=== PATIENT | female | born 1960 | race Caucasian/White ===

== ENCOUNTER 2018-01-04 13:25 | Inpatient (IN) | payer BC ==
[~2018-01-04] VITALS: Ht 170.2 cm; Wt 87.4 kg
[~2018-01-04 13:25] MED LIST: ALPR-475 PO; ENAL20TA PO; LISI1TAB3 PO; LISI1TAB7 PO; METO-93 PO; METO50TA4 PO
[2018-01-04] MEDS ORDERED: ESCI10TA PO (14:22)
[2018-01-04] MEDS ORDERED: METO25TA35 PO (14:22)
[2018-01-04] MEDS ORDERED: LISI2.5T PO (14:23)
[2018-01-04] MEDS ORDERED: DEXL60CA2 PO (14:23)
[2018-01-04] MEDS ORDERED: SODIUM CHLORIDE FLUSH 10ML SYR IVF ONE (15:00)
[2018-01-04] MEDS ORDERED: METOCLOPRAMIDE 5 MG/ML, 2ML IVPush ONE (15:00)
[2018-01-04] MEDS ORDERED: PANTOPRAZOLE 40 MG IV IVP ONE (15:00)
[2018-01-04] MEDS ORDERED: METOCLOPRAMIDE 10MG TABLET ONE (15:04)
[2018-01-04] MEDS ORDERED: PANTOPRAZOLE 40 MG IV ONE (15:05)
[2018-01-04 15:19] LABS: BASOPHILS # (AUTO) 0.03 x10^3/uL (0-0.1); BASOPHILS % (AUTO) 1 % (0-1); EOSINOPHILS # (AUTO) 0.13 x10^3/uL (0-0.4); EOSINOPHILS % (AUTO) 2 % (1-7); LYMPHOCYTES # (AUTO) 1.13 x10^3/uL (1-3.4); LYMPHOCYTES % (AUTO) 18 % (22-44); MD NO; MEAN CORPUSCULAR HEMOGLOBIN 19.8 pg (27.0-34.8); MEAN CORPUSCULAR HGB CONC 30.2 g/dL (32.4-35.8); MEAN CORPUSCULAR VOLUME 65.5 fL (80-100); MEAN PLATELET VOLUME 8.5 fL (7.4-10.4); MONOCYTES # (AUTO) 0.38 x10^3/uL (0.2-0.8); MONOCYTES % (AUTO) 6 % (2-9); NEUTROPHILS # (AUTO) 4.63 x10^3/uL (1.8-6.8); NEUTROPHILS % (AUTO) 74 % (42-75); PLATELET COUNT 370 x10^3/uL (130-400); RED BLOOD COUNT 4.31 x10^6/uL (3.82-5.3); RED CELL DISTRIBUTION WIDTH 18.1 % (9.6-15.2)
[2018-01-04 15:23] LABS: ALANINE AMINOTRANSFERASE 18 U/L (12-78); ALBUMIN 3.6 g/dL (3.4-5.0); ANION GAP 9 mmol/L (5-15); CALCIUM 9.4 mg/dL (8.5-10.1); CHLORIDE 114 mmol/L (98-107)
[2018-01-04 15:26] LABS: ALKALINE PHOSPHATASE 76 U/L (45-117); BILIRUBIN,TOTAL 0.6 mg/dL (0.2-1.0); CREATININE 0.78 mg/dL (0.55-1.02); TOTAL PROTEIN 6.7 g/dL (6.4-8.2)
[2018-01-04] MEDS ORDERED: PROMETHAZINE 25 MG/ML, 1ML ONE (15:56)
[2018-01-04] MEDS ORDERED: PROMETHAZINE 25 MG/ML, 1ML IM ONE (16:00)
[2018-01-04] MEDS ORDERED: SODIUM CHLORIDE 0.9% 1,000ML IVBOLUS ONE (16:00)
[2018-01-04] MEDS ORDERED: OMNIPAQUE 350 MG/ML, 100ML BOTTLE ONE (16:00)
[2018-01-04] MEDS ORDERED: hydrALAzine 20 MG/ML, 1ML ONE (16:11)
[2018-01-04] MEDS ORDERED: hydrALAzine 20 MG/ML, 1ML IV ONE (16:30)
[2018-01-04] MEDS ORDERED: POTASSIUM CHLORIDE 40 MEQ in SODIUM CHLORIDE 0.9% 500 ML IV ONE (16:30)
[2018-01-04] MEDS ORDERED: SODIUM CHLORIDE 0.9% 1,000 ML IV SCH (17:32)
[2018-01-04 17:51] VITALS: BP 190/89
[2018-01-04 17:58] LABS: INTERNATIONAL NORMALIZED RATIO 1.08 (0.93-1.1); PROTHROMBIN TIME 11.2 Seconds (9.6-11.5)
[2018-01-04] MEDS ORDERED: ONDANSETRON ODT 4 MG PO PRN (18:00)
[2018-01-04] MEDS ORDERED: PANTOPRAZOLE 80 MG in SODIUM CHLORIDE 0.9% 50 ML IV ONE (18:00)
[2018-01-04] MEDS ORDERED: hydrALAzine 20 MG/ML, 1ML IVPush PRN (18:00)
[2018-01-04] MEDS ORDERED: PROMETHAZINE 25 MG/ML, 1ML IM PRN (18:00)
[2018-01-04] MEDS: morphine SULFATE 10 MG/ML, 1ML IVPush PRN ×2 (20:47→21:54)
[2018-01-04] MEDS: SODIUM CHLORIDE 0.9% 1,000 ML IV SCH (21:15)
[2018-01-04] MEDS: PANTOPRAZOLE 80 MG in SODIUM CHLORIDE 0.9% 100 ML IV SCH (21:36)
[2018-01-04 21:59] VITALS: BP 149/94
[2018-01-05 01:06] VITALS: BP 152/75
[2018-01-05] MEDS: SODIUM CHLORIDE 0.9% 1,000 ML IV SCH (01:37)
[2018-01-05] MEDS: morphine SULFATE 10 MG/ML, 1ML IVPush PRN ×5 (01:37→22:09)
[2018-01-05 05:32] LABS: CHLORIDE 120 mmol/L (98-107)
[2018-01-05 05:56] LABS: ALANINE AMINOTRANSFERASE 13 U/L (12-78); ALBUMIN 2.7 g/dL (3.4-5.0); ALKALINE PHOSPHATASE 59 U/L (45-117); ANION GAP 7 mmol/L (5-15); BILIRUBIN,TOTAL 0.7 mg/dL (0.2-1.0); CALCIUM 8.2 mg/dL (8.5-10.1); CREATININE 0.57 mg/dL (0.55-1.02); TOTAL PROTEIN 5.1 g/dL (6.4-8.2)
[2018-01-05] MEDS ORDERED: POTASSIUM CHLORIDE 80 MEQ in SODIUM CHLORIDE 0.9% 1,000 ML IV ONE (08:00)
[2018-01-05] MEDS ORDERED: METOPROLOL TARTRATE 25 MG TABLET PO SCH (09:00)
[2018-01-05] MEDS ORDERED: LISINOPRIL 20 MG TABLET PO SCH (09:00)
[2018-01-05 09:11] VITALS: BP 165/77
[2018-01-05] MEDS: PANTOPRAZOLE 80 MG in SODIUM CHLORIDE 0.9% 100 ML IV SCH ×2 (09:31→22:09)
[2018-01-05] MEDS ORDERED: MIDAZOLAM 1 MG/ML, 5ML ONE (09:51)
[2018-01-05] MEDS ORDERED: FENTANYL PF 100 MCG/2ML ONE (09:51)
[2018-01-05] MEDS: SUCRALFATE 1 GM/10 ML UDC PO SCH ×3 (13:35→21:23)
[2018-01-05 13:37] LABS: ANION GAP 9 mmol/L (5-15); CHLORIDE 119 mmol/L (98-107); CREATININE 0.62 mg/dL (0.55-1.02)
[2018-01-05 13:52] VITALS: BP 132/79
[2018-01-05 18:52] VITALS: BP 134/80
[2018-01-05] MEDS: POTASSIUM CHLORIDE 20 MEQ in SODIUM CHLORIDE 0.45% 1,000 ML IV SCH (22:15)
[2018-01-06] MEDS: morphine SULFATE 10 MG/ML, 1ML IVPush PRN ×2 (01:38→05:16)
[2018-01-06 01:54] VITALS: BP 133/77
[2018-01-06 06:03] LABS: ALBUMIN 2.8 g/dL (3.4-5.0); ANION GAP 7 mmol/L (5-15); CALCIUM 7.9 mg/dL (8.5-10.1); CHLORIDE 117 mmol/L (98-107)
[2018-01-06 06:05] LABS: BASOPHILS # (AUTO) 0.04 x10^3/uL (0-0.1); BASOPHILS % (AUTO) 1 % (0-1); EOSINOPHILS # (AUTO) 0.19 x10^3/uL (0-0.4); EOSINOPHILS % (AUTO) 3 % (1-7); LYMPHOCYTES # (AUTO) 1.42 x10^3/uL (1-3.4); LYMPHOCYTES % (AUTO) 21 % (22-44); MD NO; MEAN CORPUSCULAR HEMOGLOBIN 20.4 pg (27.0-34.8); MEAN CORPUSCULAR HGB CONC 30.6 g/dL (32.4-35.8); MEAN CORPUSCULAR VOLUME 66.5 fL (80-100); MEAN PLATELET VOLUME 8.5 fL (7.4-10.4); MONOCYTES # (AUTO) 0.49 x10^3/uL (0.2-0.8); MONOCYTES % (AUTO) 7 % (2-9); NEUTROPHILS % (AUTO) 69 % (42-75); PLATELET COUNT 267 x10^3/uL (130-400); RED BLOOD COUNT 3.68 x10^6/uL (3.82-5.3); RED CELL DISTRIBUTION WIDTH 18.6 % (9.6-15.2)
[2018-01-06 06:07] LABS: ALANINE AMINOTRANSFERASE 13 U/L (12-78); ALKALINE PHOSPHATASE 64 U/L (45-117); BILIRUBIN,TOTAL 0.7 mg/dL (0.2-1.0); CREATININE 0.61 mg/dL (0.55-1.02); TOTAL PROTEIN 5.2 g/dL (6.4-8.2)
[2018-01-06 07:58] VITALS: BP 128/75
[2018-01-06] MEDS: SUCRALFATE 1 GM/10 ML UDC PO SCH ×4 (08:09→20:29)
[2018-01-06 09:14] LABS: IRON LEVEL 19 mcg/dL (50-170)
[2018-01-06 09:16] LABS: % IRON SATURATION 6 % (20-55); TOTAL IRON BINDING CAPACITY 331 mcg/dL (250-450)
[2018-01-06] MEDS ORDERED: MAGNESIUM SULFATE PMX 2GM/50ML 50 ML IV ONE (09:30)
[2018-01-06] MEDS ORDERED: ACETAMINOPHEN 500 MG TABLET PO PRN (10:30)
[2018-01-06] MEDS ORDERED: ACETAMINOPHEN 325 MG TABLET PO PRN (10:30)
[2018-01-06] MEDS: IRON SUCROSE COMPLEX 100MG/5ML IV SCH (11:02)
[2018-01-06 12:14] VITALS: BP 127/80
[2018-01-06] MEDS: PANTOPRAZOLE 80 MG in SODIUM CHLORIDE 0.9% 100 ML IV SCH (12:32)
[2018-01-06] MEDS: POTASSIUM CHLORIDE 20 MEQ in SODIUM CHLORIDE 0.45% 1,000 ML IV SCH (12:33)
[2018-01-06 20:00] VITALS: BP 123/74
[2018-01-07] MEDS ORDERED: ACETAMINOPHEN 325 MG TABLET ONE (01:23)
[2018-01-07] MEDS: ACETAMINOPHEN 325 MG TABLET PO PRN ×2 (01:25→07:53)
[2018-01-07 02:00] VITALS: BP 128/77
[2018-01-07 07:19] VITALS: BP 165/89
[2018-01-07] MEDS ORDERED: OMEPRAZOLE 20 MG CAPSULE.DR PO SCH (07:30)
[2018-01-07] MEDS: IRON SUCROSE COMPLEX 100MG/5ML IV SCH (07:44)
[2018-01-07] MEDS: SUCRALFATE 1 GM/10 ML UDC PO SCH ×2 (07:44→11:20)
[2018-01-07] MEDS ORDERED: DOCU-131 PO (09:19)
[2018-01-07] MEDS ORDERED: FERR324T5 PO (09:19)
[2018-01-07] MEDS ORDERED: OMEP20TA62 PO (09:19)
== END 2018-01-07 13:15 | disposition home or self-care (01) | DRG 393 ==
LOC: ED 16:27 → EDIP 16:28 → ED 16:45 → 4WST 17:47 → DCLOUNGE 01-07 12:55
PROVIDERS: ADMIT Hospitalist; ATTEND Hospitalist
PROC: 0D7A8ZZ Dilation of Jejunum, Via Natural or Artificial Opening Endoscopic (ICD-10-PCS; 2018-01-05)
PROC: 0D768ZZ Dilation of Stomach, Via Natural or Artificial Opening Endoscopic (ICD-10-PCS; principal; 2018-01-05 09:30)
DX: K91.89 Other postprocedural complications and disorders of digestive system (principal); E43 Unspecified severe protein-calorie malnutrition; E87.0 Hyperosmolality and hypernatremia; E87.1 Hypo-osmolality and hyponatremia; K92.2 Gastrointestinal hemorrhage, unspecified; R13.10 Dysphagia, unspecified; E87.6 Hypokalemia; E86.0 Dehydration; D50.0 Iron deficiency anemia secondary to blood loss (chronic); G89.29 Other chronic pain; I10 Essential (primary) hypertension; Y84.8 Other medical procedures as the cause of abnormal reaction of the patient, or of later complication, without mention of misadventure at the time of the procedure; Y82.8 Other medical devices associated with adverse incidents; K21.9 Gastro-esophageal reflux disease without esophagitis; K59.00 Constipation, unspecified; Z79.899 Other long term (current) drug therapy; Z82.0 Family history of epilepsy and other diseases of the nervous system; Z87.891 Personal history of nicotine dependence; Z98.84 Bariatric surgery status; Z90.49 Acquired absence of other specified parts of digestive tract; Z68.30 Body mass index [BMI] 30.0-30.9, adult
CPT/HCPCS: 36415; 71045; 74021; 74177; 80048; 80053; 82040; 82274; 83540; 83550; 83605; 83690; 83735; 84100; 84439; 84443; 85014; 85018; 85025; 85610; 86677; 86850; 86870; 86900; 86902; 86922; 86923; 93005; 96361; 96365; 96372; 96375; 99152; 99153; 99285; J1756; J2250; J2550; J3010; J3480; Q9967; C1725; C9113; J0360; J2270; J2765; J3475; J7030; J7040

== ENCOUNTER 2018-11-16 11:28 | Emergency (ER) | payer SELFPAY ==
[~2018-11-16] VITALS: Ht 170.2 cm; Wt 80.4 kg
[~2018-11-16 11:28] MED LIST changes: +DEXL60CA2 PO; +DOCU-131 PO; +ESCI10TA PO; +FERR324T5 PO; +LISI2.5T PO; +METO25TA35 PO; +OMEP20TA62 PO
[2018-11-16 11:44] VITALS: BP 174/90
[2018-11-16] MEDS ORDERED: FAMO40TA61 PO (12:04)
== END 2018-11-16 13:01 | disposition home or self-care (01) ==
LOC: ED 12:53
DX: B34.9 Viral infection, unspecified (principal); I10 Essential (primary) hypertension
CPT/HCPCS: 71046; 87081; 87880; 99284

== ENCOUNTER 2019-07-31 12:42 | Inpatient (IN) | payer MEDICAID ==
[2019-07-31] VITALS (9 sets, daily range): BP systolic 131–195; BP diastolic 64–106
[~2019-07-31] VITALS: Ht 170.2 cm; Wt 90.7 kg
[~2019-07-31 12:42] MED LIST changes: -ALPR-475 PO; +ALPR0.5T7 PO; +FAMO40TA61 PO; +LISI1TAB20 PO; +LISI1TAB23 PO; -LISI1TAB3 PO; -LISI1TAB7 PO
[2019-07-31] MEDS ORDERED: SODIUM CHLORIDE FLUSH 10ML SYR IVF ONE (13:30)
--- NOTE | 2019-07-31 13:35 | NUR ---
PT UP TO RESTROOM WITH STRONG, STEADY, INDEPENDENT GAIT. URINE SAMPLE COLLECTED AND SENT. IMAGING COMPLETE, LAB AT BEDSIDE. CALL LIGHT IN REACH, PT DENIES ANY FURTHER NEEDS OR CONCERNS AT THIS TIME.
[2019-07-31 13:40] LABS: MICROSCOPIC NOT IND
[2019-07-31 13:45] LABS: CULTURE INDICATED? NO
[2019-07-31 13:58] LABS: ALANINE AMINOTRANSFERASE 20 U/L (12-78); ALBUMIN 3.3 g/dL (3.4-5.0); ANION GAP 7 mmol/L (5-15); CALCIUM 8.4 mg/dL (8.5-10.1); CHLORIDE 110 mmol/L (98-107); CREATININE 0.74 mg/dL (0.55-1.02)
[2019-07-31 14:03] LABS: ALKALINE PHOSPHATASE 100 U/L (45-117); BILIRUBIN,TOTAL 0.5 mg/dL (0.2-1.0); TOTAL PROTEIN 6.5 g/dL (6.4-8.2); TROPONIN I < 0.015 ng/mL (0.000-0.045)
[2019-07-31 14:11] LABS: MEAN CORPUSCULAR HEMOGLOBIN 16.7 pg (27.0-34.8); MEAN CORPUSCULAR VOLUME 60.4 fL (80-100); PLATELET COUNT 395 x10^3/uL (130-400); RED BLOOD COUNT 3.66 x10^6/uL (3.82-5.3); RED CELL DISTRIBUTION WIDTH 20.1 % (9.6-15.2)
[2019-07-31 14:14] LABS: MEAN CORPUSCULAR HGB CONC 27.7 g/dL (32.4-35.8)
--- NOTE | 2019-07-31 14:18 | NUR ---
CRITICAL RESULT RECEIVED FROM LAB, HGB 6.1, HCT 22.1. ERP NOTIFIED.
[2019-07-31 14:21] LABS: MD YES
[2019-07-31 14:30] LABS: ANISOCYTOSIS 1+; BAND#(MANUAL) 0.07 x10^3/uL; BANDS%(MANUAL) 1 % (0-7); BASOS#(MANUAL) 0.14 x10^3/uL (0-0.1); BASOS% (MANUAL) 2 % (0-1); EOS#(MANUAL) 0.22 x10^3/uL (0.0-0.4); EOS% (MANUAL) 3 % (1-7); LYMPH#(MANUAL) 1.01 x10^3/uL (1-3.4); LYMPHS% (MANUAL) 14 % (22-44); MONOS#(MANUAL) 0.58 x10^3/uL (0.3-2.7); MONOS% (MANUAL) 8 % (2-9); MYELOCYTES# (MANUAL) 0.07 x10^3/uL (0-0); MYELOCYTES% (MANUAL) 1 % (0-0); SEG#(MANUAL) 5.11 x10^3/uL (1.8-6.8); SEGS% (MANUAL) 71 % (42-75)
[2019-07-31 14:35] LABS: HYPOCHROMIA 2+; MICROCYTOSIS 2+
[2019-07-31 14:36] LABS: OVALOCYTES 1+
[2019-07-31 14:37] LABS: <PLATELET ESTIMATE> ADEQUATE; TEAR DROPS 1+
[2019-07-31 14:38] LABS: LARGE PLATELETS 1+
[2019-07-31 14:39] LABS: POLYCHROMASIA 1+
--- NOTE | 2019-07-31 14:53 | NUR ---
TASK RN: ASSISTED MD ON RECTAL EXAM.
[2019-07-31] MEDS ORDERED: PANTOPRAZOLE 40 MG IV IVPush ONE (14:58)
[2019-07-31] MEDS ORDERED: PANTOPRAZOLE 40 MG IV ONE (15:08)
--- NOTE | 2019-07-31 15:15 | NUR ---
REPORT FROM MAYRA KING. ERP AT BEDSIDE TO DISCUSS POC (ADMIT) PT DEMONSTRATES UNDERSTANDING. CONSENT FOR BLOOD TRANSFUSION SIGNED AND ON CHART. PIV X 2 PLACED. PT MEDICATED PER EMAR BP/SPO2/ECG MONITORING IN PLACE. NSR ON MONITOR. SO AT BEDSIDE. PT SITTING UP IN GURNEY, NAD NOTED. RESPIRATIONS EVEN/UNLABORED. SPEAKING IN FULL SENTENCES. SKIN PINK/WARM. SPO2 >90% ON RA. DENIES NEED FOR PAIN/NAUSEA MEDICATIONS.
--- NOTE | 2019-07-31 15:44 | NUR ---
DELAY IN TRANSFUSION D/T UNIQUE BLOOD REQUIREMENTS PER BB. HOSPITALIST AT BEDSIDE. AWAITING ADMIT BED ASSIGNMENT.
[2019-07-31 15:51] LABS: % IRON SATURATION 2 % (20-55); IRON LEVEL 8 mcg/dL (50-170); TOTAL IRON BINDING CAPACITY 509 mcg/dL (250-450)
--- NOTE | 2019-07-31 16:15 | NUR ---
REPORT TO MAYRA CONRAD
[2019-07-31] MEDS ORDERED: hydrALAzine 20 MG/ML, 1ML IVPush PRN (16:30)
[2019-07-31] MEDS ORDERED: ONDANSETRON 2MG/ML, 2ML IVPush PRN (16:30)
[2019-07-31] MEDS ORDERED: ACETAMINOPHEN 325 MG TABLET PO PRN (16:30)
[2019-07-31] MEDS ORDERED: IRON SUCROSE COMPLEX 100MG/5ML IV ONE (16:30)
[2019-07-31] MEDS ORDERED: TEMAZEPAM 15 MG CAPSULE PO PRN (16:30)
[2019-07-31] MEDS: METOPROLOL TARTRATE 25 MG TABLET PO SCH (17:10)
[2019-07-31] MEDS: POTASSIUM CHLORIDE 20 MEQ TAB.ER.PRT PO SCH (17:10)
[2019-07-31] MEDS: FUROSEMIDE 20 MG/2 ML IV SCH (17:11)
[2019-07-31] MEDS: TRIAMCINOLONE CRM 0.1%, 15GM TP SCH ×2 (17:11→21:43)
[2019-07-31] MEDS: SUCRALFATE 1 GM/10 ML UDC PO SCH ×2 (17:11→21:43)
[2019-07-31] MEDS: LISINOPRIL 10 MG TABLET PO SCH (21:43)
[2019-08-01] VITALS (12 sets, daily range): BP systolic 96–148; BP diastolic 60–78
[2019-08-01] MEDS: PANTOPRAZOLE 40 MG IV IVPush SCH ×2 (02:37→14:39)
[2019-08-01] MEDS: METOPROLOL TARTRATE 25 MG TABLET PO SCH ×2 (05:49→18:00)
[2019-08-01 06:17] LABS: CHLORIDE 111 mmol/L (98-107)
[2019-08-01 06:26] LABS: ALANINE AMINOTRANSFERASE 15 U/L (12-78); ALBUMIN 2.9 g/dL (3.4-5.0); ALKALINE PHOSPHATASE 90 U/L (45-117); ANION GAP 8 mmol/L (5-15); BILIRUBIN,TOTAL 0.7 mg/dL (0.2-1.0); CALCIUM 8.3 mg/dL (8.5-10.1); CREATININE 0.61 mg/dL (0.55-1.02); TOTAL PROTEIN 5.7 g/dL (6.4-8.2)
[2019-08-01] MEDS ORDERED: MAGNESIUM SULFATE PMX 2GM/50ML 50 ML IV ONE (07:00)
[2019-08-01] MEDS: SUCRALFATE 1 GM/10 ML UDC PO SCH ×4 (07:43→20:16)
[2019-08-01] MEDS: LISINOPRIL 10 MG TABLET PO SCH (07:43)
[2019-08-01] MEDS: POTASSIUM CHLORIDE 20 MEQ TAB.ER.PRT PO SCH (07:43)
[2019-08-01] MEDS: FUROSEMIDE 20 MG/2 ML IV SCH (07:43)
[2019-08-01] MEDS: ESCITALOPRAM 10MG TABLET PO SCH (07:44)
[2019-08-01] MEDS: TRIAMCINOLONE CRM 0.1%, 15GM TP SCH ×3 (07:45→20:16)
[2019-08-01] MEDS ORDERED: LORazepam 0.5MG TABLET PO PRN (09:30)
[2019-08-01] MEDS ORDERED: LORazepam 2 MG/ML, 1ML IV PRN ×5 (09:30)
[2019-08-01] MEDS ORDERED: LORazepam 1MG TABLET PO PRN ×4 (09:30)
[2019-08-01] MEDS: POTASSIUM CHLORIDE 20 MEQ, MAGNESIUM SULFATE 1 GM, FOLIC ACID 1 MG, THIAMINE 200 MG, MV... IV SCH (10:58)
[2019-08-02 01:14] VITALS: BP 133/86
[2019-08-02] MEDS: PANTOPRAZOLE 40 MG IV IVPush SCH ×2 (02:36→14:23)
[2019-08-02 05:55] VITALS: BP 143/79
[2019-08-02] MEDS: METOPROLOL TARTRATE 25 MG TABLET PO SCH ×2 (05:59→17:49)
[2019-08-02 06:00] LABS: MEAN CORPUSCULAR HEMOGLOBIN 18.7 pg (27.0-34.8); MEAN CORPUSCULAR HGB CONC 28.8 g/dL (32.4-35.8); MEAN PLATELET VOLUME 8.9 fL (7.4-10.4); PLATELET COUNT 358 x10^3/uL (130-400); RED BLOOD COUNT 3.89 x10^6/uL (3.82-5.3); RED CELL DISTRIBUTION WIDTH 24.7 % (9.6-15.2)
[2019-08-02 06:04] LABS: ANION GAP 8 mmol/L (5-15); CALCIUM 8.2 mg/dL (8.5-10.1); CHLORIDE 113 mmol/L (98-107); CREATININE 0.67 mg/dL (0.55-1.02)
[2019-08-02 06:12] LABS: MD YES
[2019-08-02 06:14] LABS: EOS#(MANUAL) 0.32 x10^3/uL (0.0-0.4); EOS% (MANUAL) 5 % (1-7); LYMPH#(MANUAL) 1.32 x10^3/uL (1-3.4); LYMPHS% (MANUAL) 21 % (22-44); MONOS#(MANUAL) 0.32 x10^3/uL (0.3-2.7); MONOS% (MANUAL) 5 % (2-9); SEG#(MANUAL) 4.35 x10^3/uL (1.8-6.8); SEGS% (MANUAL) 69 % (42-75)
[2019-08-02 06:15] LABS: <PLATELET ESTIMATE> ADEQUATE; <PLT MORPHOLOGY> NORMAL PLT MORPH; ANISOCYTOSIS 1+; HYPOCHROMIA 2+; MICROCYTOSIS 2+; OVALOCYTES 1+; POLYCHROMASIA 1+; TEAR DROPS 1+
[2019-08-02 06:48] VITALS: BP 144/80
[2019-08-02] MEDS: SUCRALFATE 1 GM/10 ML UDC PO SCH ×4 (08:47→21:10)
[2019-08-02] MEDS: ESCITALOPRAM 10MG TABLET PO SCH (08:47)
[2019-08-02] MEDS: TRIAMCINOLONE CRM 0.1%, 15GM TP SCH ×3 (08:48→21:10)
[2019-08-02] MEDS: LISINOPRIL 10 MG TABLET PO SCH (08:49)
[2019-08-02] MEDS ORDERED: IRON SUCROSE COMPLEX 100MG/5ML IV ONE (11:00)
[2019-08-02] MEDS: POTASSIUM CHLORIDE 20 MEQ, MAGNESIUM SULFATE 1 GM, FOLIC ACID 1 MG, THIAMINE 200 MG, MV... IV SCH (12:34)
[2019-08-02 12:43] VITALS: BP 106/70
[2019-08-02 19:18] VITALS: BP 108/71
[2019-08-03 01:03] VITALS: BP 135/75
[2019-08-03 05:33] VITALS: BP 162/89
[2019-08-03] MEDS: METOPROLOL TARTRATE 25 MG TABLET PO SCH (05:35)
[2019-08-03 06:09] LABS: MEAN CORPUSCULAR HEMOGLOBIN 18.8 pg (27.0-34.8); MEAN CORPUSCULAR VOLUME 65.9 fL (80-100); MEAN PLATELET VOLUME 9.1 fL (7.4-10.4); PLATELET COUNT 344 x10^3/uL (130-400); RED BLOOD COUNT 4.13 x10^6/uL (3.82-5.3); RED CELL DISTRIBUTION WIDTH 25.4 % (9.6-15.2)
[2019-08-03 06:38] LABS: MD YES; MEAN CORPUSCULAR HGB CONC 28.6 g/dL (32.4-35.8)
[2019-08-03 06:40] LABS: EOS#(MANUAL) 0.63 x10^3/uL (0.0-0.4); EOS% (MANUAL) 8 % (1-7); LYMPH#(MANUAL) 1.82 x10^3/uL (1-3.4); LYMPHS% (MANUAL) 23 % (22-44); MONOS#(MANUAL) 0.55 x10^3/uL (0.3-2.7); MONOS% (MANUAL) 7 % (2-9); SEGS% (MANUAL) 62 % (42-75)
[2019-08-03 06:42] LABS: ANISOCYTOSIS 1+; HYPOCHROMIA 2+; MICROCYTOSIS 2+; OVALOCYTES 1+; POLYCHROMASIA 1+; TEAR DROPS 1+
[2019-08-03 06:43] LABS: <PLATELET ESTIMATE> ADEQUATE; <PLT MORPHOLOGY> NORMAL PLT MORPH
[2019-08-03] MEDS ORDERED: IRON SUCROSE COMPLEX 100MG/5ML IV ONE (07:00)
[2019-08-03 07:20] VITALS: BP 143/73
[2019-08-03] MEDS ORDERED: PANTOPROZOLE 40MG TABLET PO SCH (07:30)
[2019-08-03] MEDS ORDERED: PANT40TA5 PO (07:33)
[2019-08-03] MEDS ORDERED: ESCI10TA PO (07:33)
[2019-08-03] MEDS ORDERED: LISI-167 PO (07:33)
[2019-08-03] MEDS ORDERED: SUCR1ORA5 PO (07:33)
[2019-08-03] MEDS ORDERED: FURO-93 PO (07:33)
[2019-08-03] MEDS ORDERED: METO25TA35 PO (07:33)
[2019-08-03] MEDS ORDERED: POTA10CA PO (07:33)
[2019-08-03] MEDS: LISINOPRIL 10 MG TABLET PO SCH (10:11)
[2019-08-03] MEDS: SUCRALFATE 1 GM/10 ML UDC PO SCH (10:11)
[2019-08-03] MEDS: ESCITALOPRAM 10MG TABLET PO SCH (10:11)
[2019-08-03] MEDS: POTASSIUM CHLORIDE 20 MEQ, MAGNESIUM SULFATE 1 GM, FOLIC ACID 1 MG, THIAMINE 200 MG, MV... IV SCH (10:30)
[2019-08-03] MEDS: TRIAMCINOLONE CRM 0.1%, 15GM TP SCH (11:06)
[2019-08-03] MEDS ORDERED: FLU VACC QS2019-20 36MOS UP/PF 0.5 ML IM-VACC ONE (11:30)
[2019-08-03] MEDS ORDERED: FERR325T5 PO (12:30)
== END 2019-08-03 12:46 | disposition home or self-care (01) | DRG 293 ==
LOC: ED 14:09 → SUATTDRO 15:13 → EDIP 15:46 → 3N 16:19 → DCLOUNGE 08-03 12:27
PROVIDERS: ADMIT Internal Medicine; ATTEND Hospitalist
PROC: 30233N1 Transfusion of Nonautologous Red Blood Cells into Peripheral Vein, Percutaneous Approach (ICD-10-PCS; principal; 2019-07-31)
DX: I11.0 Hypertensive heart disease with heart failure (principal); D50.0 Iron deficiency anemia secondary to blood loss (chronic); I50.33 Acute on chronic diastolic (congestive) heart failure; E04.2 Nontoxic multinodular goiter; E66.9 Obesity, unspecified; Z68.31 Body mass index [BMI] 31.0-31.9, adult; Z88.8 Allergy status to other drugs, medicaments and biological substances; F10.10 Alcohol abuse, uncomplicated; Y90.9 Presence of alcohol in blood, level not specified; F32.9 Major depressive disorder, single episode, unspecified; K21.9 Gastro-esophageal reflux disease without esophagitis; L29.9 Pruritus, unspecified; R63.3 Feeding difficulties; Z80.1 Family history of malignant neoplasm of trachea, bronchus and lung; Z87.891 Personal history of nicotine dependence; Z91.14 Patient's other noncompliance with medication regimen; Z98.84 Bariatric surgery status
CPT/HCPCS: 36415; 36430; 71046; 80048; 80053; 81003; 82607; 83540; 83550; 83735; 83880; 84100; 84443; 84484; 85014; 85018; 85025; 86850; 86870; 86900; 86902; 86922; 93005; 93306; 97165; 99285; C9113; J0360; J1756; J1940; J3411; J3475; J3480; J7121; P9016; 86923; G0378

== ENCOUNTER 2019-11-07 15:09 | Emergency (ER) | payer MEDICAID ==
[~2019-11-07] VITALS: Ht 170.2 cm; Wt 79.0 kg
[~2019-11-07 15:09] MED LIST changes: +FERR325T5 PO; +FURO-93 PO; +LISI-167 PO; +PANT40TA5 PO; +POTA10CA PO; +SUCR1ORA5 PO
--- NOTE | 2019-11-07 15:39 | NUR ---
PT CAME IN CO OF BODY ACHES, CHILLS, SOB, FEVER, COUGH. WAS TRAVELING TO [place]. SAYS SHE GOT SO NAUSEOUS SHE FELL OVER AND HURT HER BACK. MD IS BEDSIDE. FLU SWAB, STREP SWAB, AND COVID SWAB ALL TAKEN.
[2019-11-07 16:07] VITALS: BP 191/100
--- NOTE | 2019-11-07 16:08 | NUR ---
PT RESTING IN [facility]. BLANKET PROVIDED.
[2019-11-07 16:11] LABS: RAPID INFLUENZA A Negative (Negative); RAPID INFLUENZA B Negative (Negative)
== END 2019-11-07 17:27 | disposition home or self-care (01) ==
LOC: ED 17:20
DX: B34.9 Viral infection, unspecified (principal); Z20.828 Contact with and (suspected) exposure to other viral communicable diseases
CPT/HCPCS: 71045; 87081; 87400; 87486; 87581; 87633; 87798; 87880; 99284